=== PATIENT | male | born 1970 | race Caucasian/White ===

== ENCOUNTER 2018-10-22 02:10 | Emergency (ER) | payer MEDICAID, OTHER ==
[~2018-10-22] VITALS: Ht 180.3 cm; Wt 70.3 kg
[2018-10-22 02:15] VITALS: BP 132/85
--- NOTE | 2018-10-22 02:38 | NUR ---
Patient discharged to home in stable condition. Written and verbal after care instructions given. Patient verbalizes understanding of instruction.
== END 2018-10-22 02:39 | disposition home or self-care (01) ==
LOC: ER 02:13
DX: F31.9 Bipolar disorder, unspecified (principal); F10.10 Alcohol abuse, uncomplicated; F17.200 Nicotine dependence, unspecified, uncomplicated; Y90.9 Presence of alcohol in blood, level not specified; Z88.5 Allergy status to narcotic agent; Z88.9 Allergy status to unspecified drugs, medicaments and biological substances

== ENCOUNTER 2018-11-21 13:08 | Emergency (ER) | payer MEDICAID ==
[~2018-11-21] VITALS: Ht 177.8 cm; Wt 70.3 kg
[2018-11-21 13:17] VITALS: BP 109/79
== END 2018-11-21 13:35 | disposition home or self-care (01) ==
LOC: ER 13:16
DX: F41.9 Anxiety disorder, unspecified (principal); F10.10 Alcohol abuse, uncomplicated; F17.200 Nicotine dependence, unspecified, uncomplicated; Y90.9 Presence of alcohol in blood, level not specified; Z88.5 Allergy status to narcotic agent

== ENCOUNTER 2018-12-21 14:24 | Emergency (ER) | payer MEDICAID, OTHER ==
[~2018-12-21] VITALS: Ht 180.3 cm; Wt 70.3 kg
[2018-12-21 14:33] VITALS: BP 125/87
== END 2018-12-21 14:56 | disposition home or self-care (01) ==
LOC: ER 14:26
DX: F41.9 Anxiety disorder, unspecified (principal); F10.10 Alcohol abuse, uncomplicated; F17.200 Nicotine dependence, unspecified, uncomplicated; Y90.9 Presence of alcohol in blood, level not specified; Z76.0 Encounter for issue of repeat prescription; Z60.2 Problems related to living alone; Z88.5 Allergy status to narcotic agent